=== PATIENT | male | born 1940 | race Caucasian/White ===

== ENCOUNTER 2020-05-05 10:53 | Day surgery (SDC) | payer MEDICARE ==
[2020-05-04 09:01] VITALS: BMI 21.6
[2020-05-05] MEDS ORDERED: Phenylephrine 2.5% Ophth Soln 5 ML BOT ONE (11:39)
[2020-05-05] MEDS ORDERED: Phenylephrine 2.5% Ophth Soln 5 ML BOT EA EYE SCH (11:45)
== END 2020-05-05 12:33 | disposition home or self-care (01) ==
LOC: SDC 10:53
PROVIDERS: ATTEND Ophthalmology
PROC: 085K3ZZ Destruction of Left Lens, Percutaneous Approach (ICD-10-PCS; principal; 2020-05-05)
DX: H26.493 Other secondary cataract, bilateral (principal); Z79.4 Long term (current) use of insulin